=== PATIENT | female | born 1980 | race Asian ===

== ENCOUNTER 2016-10-05 16:13 | Emergency (ER) | payer SELFPAY ==
[~2016-10-05] VITALS: Ht 157.5 cm; Wt 40.5 kg
[2016-10-05 16:17] VITALS: Ht 157.5 cm; Wt 40.5 kg
== END 2016-10-05 21:59 | disposition left against medical advice (07) ==
LOC: FTE 16:13
DX: Z53.21 Procedure and treatment not carried out due to patient leaving prior to being seen by health care provider (principal)